=== PATIENT | female | born 1980 | race African-American/Black ===

== ENCOUNTER 2019-08-25 16:38 | Emergency (ER) | payer MEDICAID ==
[~2019-08-25] VITALS: Ht 165.1 cm; Wt 95.0 kg
[2019-08-25 16:44] VITALS: BP 110/74
== END 2019-08-25 21:31 | disposition left against medical advice (07) ==
LOC: ER 16:38
DX: Z53.21 Procedure and treatment not carried out due to patient leaving prior to being seen by health care provider (principal)